=== PATIENT | female | born 2000 | race African-American/Black ===

== ENCOUNTER 2020-11-12 09:23 | Inpatient (IN) ==
[2020-11-12 12:04] LABS: Bilirubin,Urine Negative (Negative); Blood, Urine Negative (Negative); Glucose,Urine (UA) Negative (Negative); Ketones,Urine Negative (Negative); Mucus,Urine Occasional /LPF (Occasional); Nitrite,Urine Negative (Negative); Protein,Urine Negative; RBC,Urine 1 /HPF (0-4); Squamous Epithelial Cell,Urine Occasional /HPF (0-10); Urine Appearance CLEAR (Clear); Urine Color Yellow (Yellow); Urine Specific Gravity 1.012 (1.001-1.035); Urine Urobilinogen < 2.0 EU/DL (0.2-1.0)
[2020-11-12] MEDS ORDERED: ONDANSETRON 4 MG/2 ML VIAL IV PRN ×2 (12:52→21:50)
[2020-11-12] MEDS: LACTATED RINGERS 1,000 ML IV PRN ×2 (12:57→14:00)
[2020-11-12] MEDS ORDERED: OXYTOCIN/LR 20 UNIT/1,000 ML BAG IV PRN (12:59)
[2020-11-12] MEDS ORDERED: BUTORPHANOL 1 MG/ML VIAL IV PRN (13:01)
[2020-11-12] MEDS ORDERED: BUTORPHANOL 2 MG/ML VIAL IV PRN (13:01)
[2020-11-12] MEDS ORDERED: BUTORPHANOL 1 MG/ML VIAL ONE (13:03)
[2020-11-12 13:27] LABS: Basophils % 0.1 % (0.0-0.8); Hemoglobin 11.7 GM/DL (12.0-16.0); Immature Granulocytes % 0.5 %; Immature Granulocytes Absolute 0.05 #; Lymphocytes # 0.9 10*3/uL (1.4-4.0); Lymphocytes % 8.7 % (21.3-54.2); Mean Corpuscular HGB Conc 32.5 GM/DL (32-36); Mean Corpuscular Volume 86.7 FL (87-102); Mean Platelet Volume 10.8 FL (9.6-12.0); Monocytes % 4.6 % (1.7-12.7); Neutrophils % 86.1 % (38.7-73.9); Platelet Count 181 T/CUMM (130-400); Red Blood Count 4.15 MC/CUMM (3.8-5.5); Red Cell Distribution Width 13.7 % (9.3-17.3); White Blood Count 10.6 T/CUMM (4-12)
[2020-11-12] MEDS ORDERED: NALOXONE 0.4 MG/ML VIAL IV PRN (13:38)
[2020-11-12] MEDS ORDERED: FAMOTIDINE 20 MG/2 ML VIAL IV ONE (13:38)
[2020-11-12] MEDS ORDERED: diphenhydrAMINE 50 MG/1 ML VIAL IV PRN ×2 (13:38)
[2020-11-12] MEDS ORDERED: ePHEDrine 50 MG/ML VIAL IV PRN (13:38)
[2020-11-12] MEDS ORDERED: CITRIC ACID/SODIUM CITRATE 30 ML UDCUP PO ONE (13:38)
[2020-11-12] MEDS ORDERED: ONDANSETRON 4 MG/2 ML VIAL IV ONE (13:38)
[2020-11-12] MEDS ORDERED: PROMETHAZINE 25 MG/1 ML VIAL IM ONE (13:38)
[2020-11-12] MEDS ORDERED: hydrOXYzine HCL 25 MG/1 ML VIAL IM PRN (13:38)
[2020-11-12 13:47] LABS: Bilirubin,Total 0.4 MG/DL (0.20-1.00); Calcium 9.4 MG/DL (8.5-10.1); Potassium 3.5 MMOL/L (3.5-5.1); Total Protein 7.9 G/DL (6.4-8.2)
[2020-11-12] MEDS ORDERED: fentaNYL 2 MCG/ROPIV 0.2% EPID 100 ML EPIDURAL SCH (14:00)
[2020-11-12] MEDS ORDERED: ceFAZolin 2,000 MG/50 ML DUPLEX IV ONE (20:39)
[2020-11-12] MEDS ORDERED: ONDANSETRON 4 MG/2 ML VIAL ONE (20:47)
[2020-11-12] MEDS ORDERED: LIDOCAINE MPF 2% /EPI 20 ML VIAL ONE ×2 (20:47→20:57)
[2020-11-12] MEDS ORDERED: METHYLERGONOVINE 0.2 MG/1 ML AMP ONE (20:49)
[2020-11-12] MEDS ORDERED: ACETAMINOPHEN INJ 1,000 MG/100 ML VIAL IV ONE (21:03)
[2020-11-12] MEDS ORDERED: DEXAMETHASONE 4 MG/1 ML VIAL ONE ×2 (21:03)
[2020-11-12] MEDS ORDERED: KETOROLAC 30 MG/1 ML VIAL ONE (21:03)
[2020-11-12] MEDS ORDERED: PHENYLEPHRINE 1 MG/10 ML SYRINGE IV ONE (21:24)
[2020-11-12 21:42] LABS: Cord Arterial Blood HCO3 18.4 MMOL/L
[2020-11-12 21:44] LABS: Cord Venous Blood PCO2 48.7 MMHG; Cord Venous Blood PO2 < 17
[2020-11-12] MEDS ORDERED: ACETAMINOPHEN 325 MG TABLET PO PRN (21:50)
[2020-11-12] MEDS ORDERED: SIMETHICONE CHEW 80 MG TABLET PO PRN (21:50)
[2020-11-12] MEDS ORDERED: OXYTOCIN/LR 20 UNIT/1,000 ML BAG IV ONE (21:50)
[2020-11-12] MEDS ORDERED: RHO(D) IMMUNE GLOBULIN 300 MCG SYRINGE IM ONE (21:50)
[2020-11-12] MEDS ORDERED: LACTATED RINGERS 1,000 ML IV SCH (22:00)
[2020-11-12] MEDS ORDERED: SODIUM BICARBONATE 10 MEQ/10 ML SYRINGE IV ONE (22:15)
[2020-11-13] MEDS ORDERED: KETOROLAC 30 MG/1 ML VIAL IV PRN (03:00)
[2020-11-13] MEDS ORDERED: ACETAMINOPHEN 500 MG TABLET PO PRN (03:00)
[2020-11-13 06:50] LABS: Basophils % 0.1 % (0.0-0.8); Hematocrit 29.1 VOL% (35.7-47.0); Hemoglobin 9.6 GM/DL (12.0-16.0); Immature Granulocytes % 0.5 %; Immature Granulocytes Absolute 0.07 #; Lymphocytes # 0.9 10*3/uL (1.4-4.0); Lymphocytes % 6.4 % (21.3-54.2); Mean Corpuscular Volume 86.6 FL (87-102); Mean Platelet Volume 11.5 FL (9.6-12.0); Monocytes % 8.4 % (1.7-12.7); Neutrophils % 84.6 % (38.7-73.9); Platelet Count 152 T/CUMM (130-400); Red Blood Count 3.36 MC/CUMM (3.8-5.5); Red Cell Distribution Width 13.7 % (9.3-17.3); White Blood Count 13.6 T/CUMM (4-12)
[2020-11-13] MEDS: MULTIVITAMIN (PRENATAL) TABLET PO SCH (08:24)
[2020-11-13] MEDS: DOCUSATE SODIUM 100 MG CAPSULE PO SCH ×2 (08:25→21:38)
[2020-11-13] MEDS: FERROUS SULFATE 325 MG TABLET PO SCH (08:25)
[2020-11-13] MEDS: IBUPROFEN 800 MG TABLET PO PRN ×2 (11:21→21:39)
[2020-11-13] MEDS: MAGNESIUM HYDROXIDE SUSP 30 ML UDCUP PO PRN ×2 (11:22→21:38)
[2020-11-14] MEDS: DOCUSATE SODIUM 100 MG CAPSULE PO SCH (08:41)
[2020-11-14] MEDS: MULTIVITAMIN (PRENATAL) TABLET PO SCH (08:41)
[2020-11-14] MEDS: FERROUS SULFATE 325 MG TABLET PO SCH (08:41)
[2020-11-14] MEDS ORDERED: INFLUENZA VIRUS VACCINE 0.5 ML SYRINGE IM ONE (11:54)
[2020-11-14] MEDS ORDERED: DIPH/TET/ACEL PERT BOOSTER VACCINE 0.5 ML VIAL IM ONE (11:54)
[2020-11-14 13:34] VITALS: BP 103/63
== END 2020-11-14 13:45 | disposition home or self-care (01) | DRG 540 ==
LOC: N.LDOUT 09:23 → N.LD 09:26 → N.OB 11-13 01:05
PROVIDERS: ADMIT Obstetrics & Gynecology; ATTEND Obstetrics & Gynecology
PROC: LDCSECT (ICD-10-PCS; 2020-11-12 20:35)